=== PATIENT | female | born 1970 | race Caucasian/White ===

== ENCOUNTER 2016-12-26 19:18 | Emergency (ER) | payer SELFPAY ==
[~2016-12-26] VITALS: Ht 170.2 cm; Wt 67.7 kg
[~2016-12-26 19:18] MED LIST: ALBUAER2 INH; BUPR-79 PO; CALC500C3 PO; LEVO112T2 PO; LIOT5TAB PO; MELO15TA4 PO; OMEP20TA PO; POTA1CAP2 PO; PROP80TA2 PO
[2016-12-26 19:21] VITALS: TEMP 36.6; Ht 170.2 cm; Wt 67.7 kg
[2016-12-26] MEDS ORDERED: VNTHFA/IN INH (19:46)
[2016-12-26] MEDS ORDERED: POTA10CA28 PO (19:46)
[2016-12-26] MEDS ORDERED: GI COCKTAIL PO STA (20:38)
--- NOTE | 2016-12-26 20:44 | EMERGENCY ROOM VISIT NOTE ---
History Report prepared by Adis: Seb Suarez Under the Supervision of: Dr. Iron Ivan M.D. First contact with patient: 20:26 Chief Complaint: SORETHROAT Stated Complaint: HEADACHE, SORE THROAT History of Present Illness The patient is a 46 year old female who presents to the Emergency Room with complaints of a constant sorethroat beginning 8 days ago. The patient states that she ate blueberries. She reports that it started with a sorethroat and chest pain. The patient notes that now she is short of breath, nauseous, has neck pain, a headache, abdominal pain, and difficulty swallowing. She states that swallowing worsens her symptoms. The patient reports that she called her PCP to make an appointment and was told to come here. She notes that she has a history of GERD and takes Nexium. The patient states that she has a history of a cholecystectomy and a thyroidectomy. She denies a history of pancreatitis, liver problems, heart disease, recent travel, and steroid use. The patient notes that she is a smoker, and she sometimes smokes up to 3 packs a day. Source of History: patient Onset: 8 days ago Position: throat Quality: other (sore) Timing: constant Modifying Factors (Worsening): other (swallowing) Associated Symptoms: + headache, + neck pain, + chest pain, + SOB, + nausea , + abdominal pain Note: Associated symptoms: difficulty swallowing. Review of Systems See HPI for pertinent positives & negatives. A total of 10 systems reviewed and were otherwise negative. Past Medical & Surgical Medical Problems: (1) Abdominal hysterectomy (2) Cholecystectomy (3) Graves' eye disease (4) Tonsillectomy Family History Hypertension Lung disease Social History Smoking Status: Current Every Day Smoker Alcohol Use: occasionally Marital Status: single Housing Status: lives with family Occupation Status: employed Current/Historical Medications Scheduled Levothyroxine Sodium (Synthroid), 112 MCG PO DAILY Liothyronine Sodium (Cytomel), 5 MCG PO BID Meloxicam (Meloxicam), 15 MG PO DAILY Omeprazole (Omeprazole), 20 MG PO DAILY Potassium Chloride (Micro-K Ext Rel), 10 MEQ PO DAILY Propranolol (Inderal), 80 MG PO DAILY Scheduled PRN Albuterol Hfa (Ventolin Hfa), 2 PUFFS INH Q4H PRN for SOB/Wheezing Allergies Coded Allergies: Gadolinium (Verified Allergy, Intermediate, hives, 12/26/16) Fenofibrate (Verified Allergy, Mild, edema, 12/26/16) Iodinated Diagnostic Agents (Verified Allergy, Unknown, swell, 12/26/16) Physical Exam Vital Signs Date Time Temp Pulse Resp B/P (MAP) Pulse Ox O2 Delivery O2 Flow Rate FiO2 12/26/16 22:14 60 20 122/65 96 12/26/16 21:10 62 18 136/92 97 Room Air 12/26/16 21:03 Room Air 95 12/26/16 19:21 36.6 68 18 95 Room Air Physical Exam GENERAL: Patient is well appearing and in no acute distress. HEENT: No acute trauma, normocephalic atraumatic, mucous membranes moist, no nasal congestion, no scleral icterus. NECK: No stridor, no adenopathy, no meningismus, trachea is midline. LUNGS: No dyspnea. Faint wheezing bilaterally to the lower lobes. no rhonchi. HEART: Regular rate and rhythm. No murmurs, rubs, gallops appreciated. ABDOMEN: Soft, nontender, bowel sounds positive, no masses appreciated, no peritonitis. BACK: No midline tenderness, no CVA tenderness EXTREMITIES: Normal motion all extremities, no cyanosis, no edema. NEUROLOGIC: Alert and oriented, no acute motor or sensory deficits, no focal weakness, cranial nerves grossly intact. SKIN: No rash, no jaundice, no diaphoresis. Medical Decision & Procedures ER Provider Diagnostic Interpretation: Radiology results and stated below per my review and radiologist interpretation: SOFT TISSUE NECK CLINICAL HISTORY: Globus sensation COMPARISON STUDY: No previous studies for comparison. FINDINGS: Surgical clips within the lower neck are noted. Alignment of the cervical spine is anatomic with the exception of straightening. Prevertebral soft tissues are unremarkable by radiography. Epiglottis is normal. No radiopaque foreign body is identified. IMPRESSION: No significant abnormality within the neck by radiography. Electronically signed by: Brett Holbrook M.D. 12/26/2016 9:46 PM Dictated Date/Time: 12/26/2016 9:45 PM CHEST 1 VW FRONT-NOT PORTABLE CLINICAL HISTORY: Chest pain. COMPARISON STUDY: Chest radiograph November 06, 2014. FINDINGS: Note is made of cholecystectomy clips. No pneumothorax or pleural effusion is identified. There is no consolidation to suggest pneumonia. Pulmonary vascularity is normal. Cardiomediastinal silhouette is normal. IMPRESSION: No acute cardiopulmonary findings. Electronically signed by: Brett Holbrook M.D. 12/26/2016 9:45 PM Dictated Date/Time: 12/26/2016 9:44 PM Laboratory Results 12/26/16 20:40 Red Blood Count 4.63, Mean Corpuscular Volume 86.0, Mean Corpuscular Hemoglobin 29.4, Mean Corpuscular Hemoglobin Concent 34.2, Mean Platelet Volume 10.2, Neutrophils (%) (Auto) 55.1, Lymphocytes (%) (Auto) 35.0, Monocytes (%) (Auto) 7.2, Eosinophils (%) (Auto) 1.7, Basophils (%) (Auto) 0.8, Neutrophils # (Auto) 6.02, Lymphocytes # (Auto) 3.81, Monocytes # (Auto) 0.78, Eosinophils # (Auto) 0.18, Basophils # (Auto) 0.09 12/26/16 20:40 Test 12/26/16 20:40 12/26/16 20:42 White Blood Count 10.90 K/uL (4.8-10.8) Red Blood Count 4.63 M/uL (4.2-5.4) Hemoglobin 13.6 g/dL (12.0-16.0) Hematocrit 39.8 % (37-47) Mean Corpuscular Volume 86.0 fL (80-100) Mean Corpuscular Hemoglobin 29.4 pg (25-34) Mean Corpuscular Hemoglobin Concent 34.2 g/dl (32-36) Platelet Count 258 K/uL (130-400) Mean Platelet Volume 10.2 fL (7.4-10.4) Neutrophils (%) (Auto) 55.1 % Lymphocytes (%) (Auto) 35.0 % Monocytes (%) (Auto) 7.2 % Eosinophils (%) (Auto) 1.7 % Basophils (%) (Auto) 0.8 % Neutrophils # (Auto) 6.02 K/uL (1.4-6.5) Lymphocytes # (Auto) 3.81 K/uL (1.2-3.4) Monocytes # (Auto) 0.78 K/uL (0.11-0.59) Eosinophils # (Auto) 0.18 K/uL (0-0.5) Basophils # (Auto) 0.09 K/uL (0-0.2) RDW Standard Deviation 42.6 fL (36.4-46.3) RDW Coefficient of Variation 13.6 % (11.5-14.5) Immature Granulocyte % (Auto) 0.2 % Immature Granulocyte # (Auto) 0.02 K/uL (0.00-0.02) Anion Gap 7.0 mmol/L (3-11) Est Creatinine Clear Calc Drug Dose 79.4 ml/min Estimated GFR () 93.2 Estimated GFR (Non- 80.5 BUN/Creatinine Ratio 13.6 (10-20) Calcium Level 9.1 mg/dl (8.5-10.1) Total Creatine Kinase 127 U/L (26-192) Creatine Kinase MB 2.0 ng/ml (0.5-3.6) Troponin I < 0.015 ng/ml (0-0.045) Creatine Kinase MB Ratio (0-3.0) Laboratory results as reviewed by me. Medications Administered Medications (Trade) Dose Ordered Sig/Anastacio Route Start Time Stop Time Status Last Admin Dose Admin Lidocaine HCl (Viscous Lidocaine 2% Soln) 20 ml STK-MED ONCE .ROUTE 12/26/16 20:53 12/26/16 20:54 DC 12/26/16 20:56 20 ML Al Hydroxide/Mg Hydroxide (Maalox Susp) 30 ml STK-MED ONCE .ROUTE 12/26/16 20:54 12/26/16 20:55 DC 12/26/16 20:56 30 ML ECG Indication: chest pain Rate (beats per minute): 57 Rhythm: sinus bradycardia Findings: RBBB, ST depression (Anterior, Lateral, and Inferior), ST elevation ( mild), other (No STEMI) Comparison ECG Date: 04/04/16 Change: Morphology from today is similar to the EKG in March. Acute change from EKGs prior to that. ED Course 2027: The patient was evaluated in room C08. A complete history and physical exam was performed. 2037: Ordered GI Cocktail 24 ml PO 2052: Ordered Lidocaine HCl 20 ml .ROUTE 2053: Ordered Maalox Susp 30 ml .ROUTE 2141: Reevaluated the patient. She notes that she began drinking large amounts of iced coffee two weeks ago, which she has never consumed before. Discussed results and discharge instructions: she verbalized understanding and agreement. The patient is ready for discharge. Medical Decision Differential: Viral, Tonsillitis, Strep, [place], Peritonsillar Abscess, Retropharyngeal Abscess, Otitis, Pneumonia, Influenza, amongst other pathologies entertained. Medication Reconciliation: I attest that I have personally reviewed the patient 's current medication list. Pleasant 46 yr old female who notes globus like sensation and pain with swallowing over last week. Now with some epigastric discomfort as well though exam benign. Also with vague SHOB which she relates to pain. No pharyngitis on exam and in general exam benign. Admits she recently started drinking coffee and has long hsitory of GERD. Tried GI cocktail with minimal improvement. EKG with diffuse depressions which is similar to previous EKG, though is acutely changed from ones prior to Mar 2016. I suspect that she has had some cardiac event at some point, or this is thyroid related, either way it clearly requires further follow up. Patient is not interested in hospital stay and states she is going home. I heavily stressed need for follow up with PCP and to discuss this further. I made it clear if symptoms worsening or if she begins having other symptoms she should return immediately for further evaluation. I furthermore stressed this upon family member here with her. I advised she start taking Nexium BID for the next week. Impression Primary Impression: EKG abnormalities Additional Impression: Globus sensation Scribe Attestation The scribe's documentation has been prepared under my direction and personally reviewed by me in its entirety. I confirm that the note above accurately reflects all work, treatment, procedures, and medical decision making performed by me. Departure Information Dispostion Home / Self-Care Referrals Primary care Provider Patient Instructions My [facility] Additional Instructions Increase your Nexium to twice daily over the next week. Avoid caffeine, chocolate, spicy foods and alcohol. Return or call 911 if chest pain, difficulty breathing, passing out or other concerning symptoms. You must follow up with your primary care provider in the next few days. Your EKG shows abnormalities (ST depressions throughout the EKG). This is similar to your previous EKG and is likely chronic, but it may mean you have heart disease which needs further evaluation. You labs today reveal no evidence of recent heart attack. Problem Qualifiers
[2016-12-26 20:53] LABS: BASO % 0.8 %; BASO ABS # 0.09 K/uL (0-0.2); COMPLETE YES; EOS % 1.7 %; HEMATOCRIT 39.8 % (37-47); IG% 0.2 %; LYMPH ABS # 3.81 K/uL (1.2-3.4); MEAN CORPUSCULAR HEMOGLOBIN 29.4 pg (25-34); MEAN CORPUSCULAR HGB CONC 34.2 g/dl (32-36); MEAN PLATELET VOLUME 10.2 fL (7.4-10.4); MONO % 7.2 %; NEUT % 55.1 %; PLATELET COUNT 258 K/uL (130-400); RED BLOOD COUNT 4.63 M/uL (4.2-5.4)
[2016-12-26] MEDS ORDERED: LIDOCAINE HCL 2% VISC SOLN 20 ML UDC ONE (20:53)
[2016-12-26] MEDS ORDERED: ALUMINUM/MAGNESIUM SUSP 30 ML UDC ONE (20:54)
[2016-12-26 21:13] LABS: BLOOD UREA NITROGEN 12 mg/dl (7-18); BUN/CREATININE RATIO 13.6 (10-20); CALCIUM 9.1 mg/dl (8.5-10.1); CARBON DIOXIDE 28 mmol/L (21-32); CHLORIDE 106 mmol/L (98-107); CREATININE 0.87 mg/dl (0.60-1.20); GLUCOSE 82 mg/dl (70-99); POTASSIUM 3.3 mmol/L (3.5-5.1); SODIUM 141 mmol/L (136-145)
[2016-12-26 21:17] LABS: CKMB/CK RATIO 1.6 (0-3.0)
--- NOTE | 2016-12-26 21:46 | DIAGNOSTIC IMAGING REPORT ---
CHEST 1 VW FRONT-NOT PORTABLE CLINICAL HISTORY: Chest pain. COMPARISON STUDY: Chest radiograph November 06, 2014. FINDINGS: Note is made of cholecystectomy clips. No pneumothorax or pleural effusion is identified. There is no consolidation to suggest pneumonia. Pulmonary vascularity is normal. Cardiomediastinal silhouette is normal. IMPRESSION: No acute cardiopulmonary findings. Electronically signed by: Brett Holbrook M.D. 12/26/2016 9:45 PM Dictated Date/Time: 12/26/2016 9:44 PM
--- NOTE | 2016-12-26 21:48 | DIAGNOSTIC IMAGING REPORT ---
SOFT TISSUE NECK CLINICAL HISTORY: Globus sensation COMPARISON STUDY: No previous studies for comparison. FINDINGS: Surgical clips within the lower neck are noted. Alignment of the cervical spine is anatomic with the exception of straightening. Prevertebral soft tissues are unremarkable by radiography. Epiglottis is normal. No radiopaque foreign body is identified. IMPRESSION: No significant abnormality within the neck by radiography. Electronically signed by: Brett Holbrook M.D. 12/26/2016 9:46 PM Dictated Date/Time: 12/26/2016 9:45 PM
[2016-12-26 22:14] VITALS: BP 122/65; PULSE 60; O2SAT 96
== END 2016-12-26 22:14 | disposition home or self-care (01) ==
LOC: C.EDB 19:19 → C.EDC 22:14
DX: F45.8 Other somatoform disorders (principal); R94.31 Abnormal electrocardiogram [ECG] [EKG]; K21.9 Gastro-esophageal reflux disease without esophagitis; I45.10 Unspecified right bundle-branch block; F17.200 Nicotine dependence, unspecified, uncomplicated; Z90.49 Acquired absence of other specified parts of digestive tract; Z98.890 Other specified postprocedural states; Z79.899 Other long term (current) drug therapy; Z88.8 Allergy status to other drugs, medicaments and biological substances; Z91.041 Radiographic dye allergy status; Z82.49 Family history of ischemic heart disease and other diseases of the circulatory system

== ENCOUNTER 2020-07-26 16:26 | Observation (INO) ==
--- NOTE | 2020-07-26 17:27 | Emergency Department Note ---
Impression & Plan Chest pain ED Provider Note NAME: RODRIGO BRADY AGE: 50 SEX: F : 1970 ARRIVES VIA: Walk-In INFORMANT: Patient, ED PROVIDER(S): Adiel Post MD Chief Complaint: Chest pain HPI: Patient does present with intermittent chest discomfort which has been ongoing for several weeks. The patient has had some pain in the shoulders and neck area which have been ongoing for several months. The patient did have a temporal artery biopsy completed back in June. The patient is a smoker. Patient denies any exertional symptoms shortness of breath lower extremity swelling. The patient denies any recent travel. The patient's most recent procedure was 5 to 6 weeks ago. Patient denies any prior history of DVT or PE. The patient describes the pain in the upper abdomen and radiates high higher into the chest but does not radiate to the back. Patient denies any alcohol use. The patient is concerned about something that may be wrong with her heart and/or the pancreas. Patient denies any recent trauma to the area. The patient denies any cough fevers chills. ROS: See HPI for pertinent positives and negatives. A total of 10 systems were reviewed and otherwise negative. Past medical history: See below Surgical history: See below Social history: See below Physical Exam: GENERAL: Wearing glasses and a mask. NAD, non-toxic. EYE EXAM: Normal conjunctiva. PERRL, no anisocoria and EOM's grossly intact w/o pain. Head: Well-healing incisional site over the right temporal area without any active bleeding pulsatility, fluctuance drainage or redness. NECK: Supple, no nuchal rigidity, no adenopathy, non-tender. No signs of meningismus. Chest: No reproducible chest wall pain. LUNGS: Clear to auscultation. Normal chest wall mechanics. HEART: NSR, no MRG. ABDOMEN: Abdomen soft, mild epigastric and right upper quadrant discomfort, normo-active bowel sounds, no masses, no rebound or guarding. BACK: No CVA TTP. SKIN: No rashes and no bruising. UPPER EXTREMITIES: Upper extremities are grossly normal. LOWER EXTREMITIES: Grossly normal, no edema. Negative Homans' sign bilaterally. NEURO EXAM: A&O x3, cranial nerves II-XII grossly intact, normal speech, moves all 4 extremities on command w/o issue. Differential diagnoses: Cardiac ischemia, aortic dissection, pulmonary embolism, pneumothorax, pneumonia, pericarditis, myocarditis, esophageal rupture, GERD, cholecystitis, pancreatitis, musculoskeletal, as well as other pathologies. Course: Patient was seen and evaluated the bedside. Full history physical exam was performed. EKG: Indication: Chest pain Normal sinus rhythm, rate 83, normal intervals, normal axis, ST depressions inferiorly and laterally. Repeat EKG Normal sinus rhythm, rate of 65, normal intervals, normal axis, T WI in lead III, ST depressions appear improved compared to prior. Repeat EKG Normal sinus rhythm, rate of 62, normal intervals, normal axis, T wave inversion lead III, no significant change from prior EKG. Imaging Studies: Radiology results as stated below per my review in the radiologist's interpretation: XR chest 1V portable CLINICAL HISTORY: Atypical chest pain COMPARISON STUDY: 05/16/2020 FINDINGS: The heart is mildly enlarged. There is no failure. There is no focal pulmonary consolidation. There are no pleural effusions. There is no pneumothorax.[ IMPRESSION: No active disease in the chest. ACT 112: Negative or not required by law. Electronically signed by: Ramon Smith M.D. 07/26/2020 5:55 PM Dictated: 07/26/201754Transcribed: 07/26/201754 Cardiac monitoring: An order was placed for continuous cardiac monitoring. The monitor shows a rate of 90 with sinus rhythm. MDM: Patient does present with concern for chest pain. The patient states that she is currently being worked up as an outpatient for possible autoimmune disorder but has no definitive diagnosis per the patient. records through the case manage r as they are with [facility]. I did attempt to obtain her outpatient records. Patient's chest pain had improved. Blood work unremarkable. D-dimer not elevated. I did speak with the on-call shirring tender Dr. Stoner and stated that given the possible dynamic EKG changes with a negative troponin he is in agreement with heparin. This was ordered. The patient did have another bout of chest discomfort. Repeat EKG was ordered and does not show any acute changes at this time. I did speak with the on-call hospitalist Dr. Fajardo. The patient was admitted to the [facility] medicine service. Critical Care: I have personally spent 45 minutes of critical care time in direct management of this patient. This includes bedside care, interpretation of diagnostic studies, and testing, discussion with consultants, patient, and family members, and other require inpatient management activities. This 45 minutes is in excess of all separately billable procedures. Past Med/Surg History Medical History (Updated 07/26/20 @ 21:20 by Adiel Post MD) Chiari I malformation Depression GERD (gastroesophageal reflux disease) Graves' eye disease Hyperthyroidism Migraines Papillary carcinoma of thyroid Surgical History H/O thyroidectomy H/O: hysterectomy History of cholecystectomy History of tonsillectomy S/P right knee arthroscopy S/P right oophorectomy Family History Mother Hypertension Social History Smoking Status: Current every day smoker Tobacco Type: Cigarettes Cigarettes Per Day: 1.5 packs; Second Hand Exposure: Yes; Hx Alcohol Use: No Hx Substance Use: No Preferred Language: Bahraini Communication Ability: Effective Visual Impairment: No Limitations Bail Attacher Required: No Beliefs That Will Affect Care: None Current Living Situation: Family Feels Safe at Home: Yes Safety Concerns: Feels Safe At This Time Assistive Devices: Glasses Allergies Allergies Allergy/AdvReac Type Severity Reaction Status Date / Time Gadolinium-Containing Allergy Intermediate hives Verified 07/26/20 18:46 Contrast Medi fenofibrate Allergy Mild edema Verified 07/26/20 18:47 lisinopril AdvReac Headache Unverified 07/26/20 18:56 Home Meds Home Medications Medication Instructions Recorded Confirmed levothyroxine 112 mcg PO DAILY 04/01/18 07/26/20 omeprazole 20 mg PO HS 04/21/18 07/26/20 liothyronine 7.5 mcg PO BID 05/16/20 07/26/20 prednisone 40 mg PO DAILY 07/26/20 07/26/20 Results & Data (ED) Vital Signs Vital Signs - 24 hr 07/26/20 16:32 07/26/20 18:00 07/26/20 18:30 Temperature 36.9 C Temperature Source Temporal Artery Scan Pulse Rate 90 78 Pulse Rate from SpO2 Sensor 77 Respiratory Rate 18 14 Respiratory Effort / Characteristics Non-Labored Spontaneous Respiratory Depth Normal Respiratory Pattern Regular Blood Pressure 176/101 H 162/97 H Blood Pressure Mean 126 118 Blood Pressure Position Sitting Pulse Oximetry 96 99 99 Oxygen Delivery Method Room Air Room Air Sepsis Recent Fever Within 48 Hours No Sepsis New/Unexplained Change in Mental Status N/A Sepsis Action Taken by Nursing No Action Required 07/26/20 18:42 Temperature Temperature Source Pulse Rate 79 Pulse Rate from SpO2 Sensor 79 Respiratory Rate 13 Respiratory Effort / Characteristics Respiratory Depth Respiratory Pattern Blood Pressure Blood Pressure Mean Blood Pressure Position Pulse Oximetry 99 Oxygen Delivery Method Sepsis Recent Fever Within 48 Hours Sepsis New/Unexplained Change in Mental Status Sepsis Action Taken by [facility] Medications Current Medication List: was personally reviewed by me Laboratory Data Attestation: I reviewed the patient's lab results. Result diagrams: 07/26/20 18:26 07/26/20 18:26 Lab Results 07/26/20 07/26/20 07/26/20 Range/Units 18:26 18:26 18:26 WBC 14.44 H (4.8-10.8) K/uL RBC 4.96 (4.2-5.4) M/uL Hgb 14.7 (12.0-16.0) g/dL Hct 44.1 (37-47) % MCV 88.9 (80-100) fL MCH 29.6 (25-34) pg MCHC 33.3 (32-36) g/dL RDW Std Deviation 47.1 H (36.4-46.3) fL RDW Coeff of Jessika 14.5 (11.5-14.5) % Plt Count 307 (130-400) K/uL MPV 9.9 (7.4-10.4) fL Immature Gran % (Auto) 0.6 % Neut % (Auto) 78.6 % Lymph % (Auto) 16.1 % Avery % (Auto) 4.5 % Eos % (Auto) 0.1 % Baso % (Auto) 0.1 % Neut # (Auto) 11.34 H (1.4-6.5) K/uL Lymph # (Auto) 2.33 (1.2-3.4) K/uL Avery # (Auto) 0.65 H (0.11-0.59) K/uL Eos # (Auto) 0.01 (0-0.5) K/uL Baso # (Auto) 0.02 (0-0.2) K/uL Immature Gran # (Auto) 0.09 H (0.00-0.02) K/uL ESR (0-21) mm/hr PT (9.0-12.0) Seconds INR (0.9-1.1) APTT (21.0-31.0) Seconds PTT Ratio D-Dimer 280 (0-500) ug/L FEU Sodium 140 (136-145) mmol/L Potassium 4.3 (3.5-5.1) mmol/L Chloride 106 (98-107) mmol/L Carbon Dioxide 27 (21-32) mmol/L Anion Gap 7.0 (3-11) BUN 14 (7-18) mg/dl Creatinine 0.77 (0.6-1.2) mg/dl Est Cr Clr Drug Dosing 95.3 ml/min Est GFR ( Amer) 105.1 Est GFR (Non-Af Amer) 90.7 BUN/Creatinine Ratio 17.7 (10-20) Glucose 98 (70-99) mg/dl Calcium 9.4 (8.5-10.1) mg/dl Total Bilirubin 0.1 L (0.2-1) mg/dl AST 7 L (15-37) U/L ALT 22 (12-78) U/L Alkaline Phosphatase 91 (45-117) U/L Troponin I < 0.015 (0-0.045) ng/ml Total Protein 7.7 (6.4-8.2) gm/dl Albumin 3.7 (3.4-5.0) gm/dl Globulin 4.0 (2.5-4.0) gm/dl Albumin/Globulin Ratio 0.9 (0.9-2) Lipase 116 (73-393) U/L Procalcitonin (0-0.5) ng/ml TSH < 0.005 L (0.300-4.500) uIu/ml Free T4 1.52 (0.8-1.6) ng/dl Urine Color Urine Appearance (Clear) Urine pH (4.5-7.5) Ur Specific [place] (1.000-1.030) Urine Protein (Negative) Urine Glucose (UA) (Negative) Urine Ketones (Negative) Urine Blood (Negative) Urine Nitrite (Negative) Urine Bilirubin (Negative) Urine Urobilinogen (Negative) Ur Leukocyte Esterase (Negative) Urine WBC (Auto) (0-5) /hpf Urine RBC (Auto) (0-4) /hpf U Hyaline Cast (Auto) (0-5) /lpf U Epithel Cells (Auto) (0-5) /lpf Urine Bacteria (Auto) (Negative) COVID-19 Eval Order SARS-CoV-2, RNA, NAAT (NEGATIVE) 07/26/20 07/26/20 07/26/20 Range/Units 18:26 18:26 18:26 WBC (4.8-10.8) K/uL RBC (4.2-5.4) M/uL Hgb (12.0-16.0) g/dL Hct (37-47) % MCV (80-100) fL MCH (25-34) pg MCHC (32-36) g/dL RDW Std Deviation (36.4-46.3) fL RDW Coeff of Jessika (11.5-14.5) % Plt Count (130-400) K/uL MPV (7.4-10.4) fL Immature Gran % (Auto) % Neut % (Auto) % Lymph % (Auto) % Avery % (Auto) % Eos % (Auto) % Baso % (Auto) % Neut # (Auto) (1.4-6.5) K/uL Lymph # (Auto) (1.2-3.4) K/uL Avery # (Auto) (0.11-0.59) K/uL Eos # (Auto) (0-0.5) K/uL Baso # (Auto) (0-0.2) K/uL Immature Gran # (Auto) (0.00-0.02) K/uL ESR (0-21) mm/hr PT 9.1 (9.0-12.0) Seconds INR 0.9 (0.9-1.1) APTT 21.4 (21.0-31.0) Seconds PTT Ratio 0.8 D-Dimer (0-500) ug/L FEU Sodium (136-145) mmol/L Potassium (3.5-5.1) mmol/L Chloride (98-107) mmol/L Carbon Dioxide (21-32) mmol/L Anion Gap (3-11) BUN (7-18) mg/dl Creatinine (0.6-1.2) mg/dl Est Cr Clr Drug Dosing ml/min Est GFR ( Amer) Est GFR (Non-Af Amer) BUN/Creatinine Ratio (10-20) Glucose (70-99) mg/dl Calcium (8.5-10.1) mg/dl Total Bilirubin (0.2-1) mg/dl AST (15-37) U/L ALT (12-78) U/L Alkaline Phosphatase (45-117) U/L Troponin I (0-0.045) ng/ml Total Protein (6.4-8.2) gm/dl Albumin (3.4-5.0) gm/dl Globulin (2.5-4.0) gm/dl Albumin/Globulin Ratio (0.9-2) Lipase (73-393) U/L Procalcitonin < 0.05 (0-0.5) ng/ml TSH (0.300-4.500) uIu/ml Free T4 (0.8-1.6) ng/dl Urine Color Yellow Urine Appearance Clear (Clear) Urine pH 5.5 (4.5-7.5) Ur Specific [place] 1.010 (1.000-1.030) Urine Protein Negative (Negative) Urine Glucose (UA) Negative (Negative) Urine Ketones Negative (Negative) Urine Blood 1+ H (Negative) Urine Nitrite Negative (Negative) Urine Bilirubin Negative (Negative) Urine Urobilinogen Negative (Negative) Ur Leukocyte Esterase Negative (Negative) Urine WBC (Auto) 0 (0-5) /hpf Urine RBC (Auto) 0-4 (0-4) /hpf U Hyaline Cast (Auto) 0 (0-5) /lpf U Epithel Cells (Auto) 10-20 H (0-5) /lpf Urine Bacteria (Auto) Negative (Negative) COVID-19 Eval Order SARS-CoV-2, RNA, NAAT (NEGATIVE) 07/26/20 07/26/20 07/26/20 Range/Units 18:26 18:52 18:52 WBC (4.8-10.8) K/uL RBC (4.2-5.4) M/uL Hgb (12.0-16.0) g/dL Hct (37-47) % MCV (80-100) fL MCH (25-34) pg MCHC (32-36) g/dL RDW Std Deviation (36.4-46.3) fL RDW Coeff of Jessika (11.5-14.5) % Plt Count (130-400) K/uL MPV (7.4-10.4) fL Immature Gran % (Auto) % Neut % (Auto) % Lymph % (Auto) % Avery % (Auto) % Eos % (Auto) % Baso % (Auto) % Neut # (Auto) (1.4-6.5) K/uL Lymph # (Auto) (1.2-3.4) K/uL Avery # (Auto) (0.11-0.59) K/uL Eos # (Auto) (0-0.5) K/uL Baso # (Auto) (0-0.2) K/uL Immature Gran # (Auto) (0.00-0.02) K/uL ESR 27 H (0-21) mm/hr PT (9.0-12.0) Seconds INR (0.9-1.1) APTT (21.0-31.0) Seconds PTT Ratio D-Dimer (0-500) ug/L FEU Sodium (136-145) mmol/L Potassium (3.5-5.1) mmol/L Chloride (98-107) mmol/L Carbon Dioxide (21-32) mmol/L Anion Gap (3-11) BUN (7-18) mg/dl Creatinine (0.6-1.2) mg/dl Est Cr Clr Drug Dosing ml/min Est GFR ( Amer) Est GFR (Non-Af Amer) BUN/Creatinine Ratio (10-20) Glucose (70-99) mg/dl Calcium (8.5-10.1) mg/dl Total Bilirubin (0.2-1) mg/dl AST (15-37) U/L ALT (12-78) U/L Alkaline Phosphatase (45-117) U/L Troponin I (0-0.045) ng/ml Total Protein (6.4-8.2) gm/dl Albumin (3.4-5.0) gm/dl Globulin (2.5-4.0) gm/dl Albumin/Globulin Ratio (0.9-2) Lipase (73-393) U/L Procalcitonin (0-0.5) ng/ml TSH (0.300-4.500) uIu/ml Free T4 (0.8-1.6) ng/dl Urine Color Urine Appearance (Clear) Urine pH (4.5-7.5) Ur Specific [place] (1.000-1.030) Urine Protein (Negative) Urine Glucose (UA) (Negative) Urine Ketones (Negative) Urine Blood (Negative) Urine Nitrite (Negative) Urine Bilirubin (Negative) Urine Urobilinogen (Negative) Ur Leukocyte Esterase (Negative) Urine WBC (Auto) (0-5) /hpf Urine RBC (Auto) (0-4) /hpf U Hyaline Cast (Auto) (0-5) /lpf U Epithel Cells (Auto) (0-5) /lpf Urine Bacteria (Auto) (Negative) COVID-19 Eval Order Covid19 IDNow atMMDC SARS-CoV-2, RNA, NAAT NEGATIVE (NEGATIVE) Administered Medications Heparin Sodium/Dextrose (Heparin Sodium/Dextrose) 25,000 units in 500 mls @ 16 mls/hr IV .Q24H NESSA; Protocol Stop: 08/25/20 19:44 Last Admin: 07/26/20 21:06 Dose: 800 units/hr, 16 mls/hr Documented by: [id number] Cosigned by: [id number] Liothyronine Sodium (Liothyronine Sodium 5 Mcg Tab) 7.5 mcg PO BID NESSA Stop: 08/25/20 20:59 Last Admin: 07/26/20 21:13 Dose: Not Given Documented by: [id number] Pantoprazole Sodium (Pantoprazole 40 Mg Tab) 40 mg PO HS NESSA; Protocol Stop: 08/25/20 20:59 Last Admin: 07/26/20 21:13 Dose: 40 mg Documented by: [id number] Discontinued Medications Aspirin (Aspirin Chew 324 Mg) 324 mg PO NOW STA Stop: 07/26/20 18:40 Last Admin: 07/26/20 18:49 Dose: 324 mg Documented by: [id number] Heparin Sodium/Dextrose (Heparin Iv Low Dose With Bolus) 1 ea IV NOW STA; Protocol Stop: 07/26/20 19:43 Last Admin: 07/26/20 21:07 Dose: 1 ea Documented by: [id number] Sodium Chloride (Nss) 500 mls @ 999 mls/hr IV .Q31M NESSA Stop: 07/26/20 18:15 Last Infusion: 07/26/20 18:56 Dose: 0 mls/hr Documented by: [id number] Admin: 07/26/20 18:05 Dose: 999 mls/hr Documented by: [id number] Sodium Chloride (Nss) 500 mls @ 999 mls/hr IV .Q31M ONE Stop: 07/26/20 18:14 Last Infusion: 07/26/20 18:56 Dose: 0 mls/hr Documented by: [id number] Admin: 07/26/20 18:05 Dose: 999 mls/hr Documented by: [id number] Heparin Sodium (Porcine) 4,000 (units/ Syringe) 4 mls @ 10 mls/min IV NOW ONE Stop: 07/26/20 21:01 Last Admin: 07/26/20 21:06 Dose: 10 mls/min Documented by: [id number] Cosigned by: [id number] Morphine Sulfate (Morphine Sulfate 4 Mg/Ml 1 Ml Carp\Vial) 4 mg IV NOW STA Stop: 07/26/20 17:45 Last Admin: 07/26/20 18:33 Dose: 4 mg Documented by: [id number] Nitroglycerin (Nitroglycerin Sl 0.4 Mg/Tab Tab) 0.4 mg SL NOW STA Stop: 07/26/20 18:40 Last Admin: 07/26/20 18:49 Dose: 0.4 mg Documented by: [id number] Discharge Plan Visit Data Chief Complaint: Chest Pain Stated Complaint: Muscle aches, chest pain, r arm pain ED Provider: Adiel Post Discharge Problem: Chest pain Patient Disposition: Admitted As Inpatient Discharge Instructions Interventions: ED Discharge Assessment Last Done: 07/26/20 20:11 Discharge Problem: Chest pain Qualifiers: Chest pain type: unspecified Qualified Code(s): R07.9 - Chest pain, unspecified
[2020-07-26] MEDS ORDERED: MoRPHine SULFATE 4 MG/ML 1 ML CARP\\VIAL IV STA (17:44)
[2020-07-26] MEDS ORDERED: SODIUM CHLORIDE 0.9% 500 ML IV ONE (17:44)
[2020-07-26] MEDS ORDERED: SODIUM CHLORIDE 0.9% 500 ML IV SCH (17:45)
--- NOTE | 2020-07-26 17:57 | XRay Report ---
XR chest 1V portable CLINICAL HISTORY: Atypical chest pain COMPARISON STUDY: 05/16/2020 FINDINGS: The heart is mildly enlarged. There is no failure. There is no focal pulmonary consolidatio n. There are no pleural effusions. There is no pneumothorax.[ IMPRESSION: No active disease in the chest. ACT 112: Negative or not required by law. Electronically signed by: Ramon Smith M.D. 07/26/2020 5:55 PM
[2020-07-26 18:37] LABS: Basophils # (auto) 0.02 K/uL (0-0.2); Basophils % (auto) 0.1 %; Eosinophils # (auto) 0.01 K/uL (0-0.5); Eosinophils % (auto) 0.1 %; Hematocrit (blood only) 44.1 % (37-47); Hemoglobin 14.7 g/dL (12.0-16.0); Immature Granulocytes # (auto) 0.09 K/uL (0.00-0.02); Immature Granulocytes % (auto) 0.6 %; Lymphocytes # (auto) 2.33 K/uL (1.2-3.4); Lymphocytes % (auto) 16.1 %; Mean Corpuscular Hemoglobin 29.6 pg (25-34); Mean Corpuscular Hgb Conc 33.3 g/dL (32-36); Mean Corpuscular Volume 88.9 fL (80-100); Mean Platelet Volume 9.9 fL (7.4-10.4); Monocytes # (auto) 0.65 K/uL (0.11-0.59); Monocytes % (auto) 4.5 %; Neutrophils # (auto) 11.34 K/uL (1.4-6.5); Neutrophils % (auto) 78.6 %; Platelet Count 307 K/uL (130-400); RDW Coefficient of Variation 14.5 % (11.5-14.5); RDW Standard Deviation 47.1 fL (36.4-46.3); Red Blood Count 4.96 M/uL (4.2-5.4); White Blood Count 14.44 K/uL (4.8-10.8)
[2020-07-26] MEDS ORDERED: NITROGLYCERIN SL 0.4 MG/TAB TAB SL PRN (18:39)
[2020-07-26] MEDS ORDERED: ASPIRIN CHEW 324 MG PO STA (18:39)
[2020-07-26] MEDS ORDERED: NITROGLYCERIN SL 0.4 MG/TAB TAB SL STA (18:39)
[2020-07-26 18:56] LABS: Alanine Aminotransferase 22 U/L (12-78); Albumin Level 3.7 gm/dl (3.4-5.0); Aspartate Aminotransferase 7 U/L (15-37); BUN Creatinine Ratio 17.7 (10-20); Blood Urea Nitrogen 14 mg/dl (7-18); Calcium 9.4 mg/dl (8.5-10.1); Carbon Dioxide 27 mmol/L (21-32); Chloride 106 mmol/L (98-107); Creatinine Clr Calc Pharmacy 95.3 ml/min; Est GFR (African American) 105.1; Est GFR (Non-African American) 90.7; Glucose 98 mg/dl (70-99); Lipase 116 U/L (73-393); Potassium 4.3 mmol/L (3.5-5.1); Sodium 140 mmol/L (136-145)
[2020-07-26 19:01] LABS: Albumin Globulin Ratio 0.9 (0.9-2); Alkaline Phosphatase 91 U/L (45-117); Bilirubin,Total 0.1 mg/dl (0.2-1); Total Protein 7.7 gm/dl (6.4-8.2); Troponin I < 0.015 ng/ml (0-0.045)
[2020-07-26 19:03] LABS: D Dimer 280 ug/L FEU (0-500)
[2020-07-26] MEDS ORDERED: ACETAMINOPHEN 325 MG TAB PO PRN (19:32)
[2020-07-26] MEDS ORDERED: ALUMINUM/MAGNESIUM SUSP 30 ML UDC PO PRN (19:32)
[2020-07-26] MEDS ORDERED: ONDANSETRON INJ 2 MG/ML 2 ML VIAL IV PRN (19:32)
[2020-07-26] MEDS ORDERED: POLYETHYLENE (MIRALAX) 17 GM PACK PO PRN (19:32)
--- NOTE | 2020-07-26 19:34 | History & Physical Report ---
Date of Service July 26, 2020 Assessment & Plan (1) Chest pain: presented with angina symptoms -on and off for past 1 week T wave flattening noted on lateral leads no chest pain at present : risk factors for CAD : family hx of CAD ( Grand mother , Aunt had CAD ) Uncle hx of stroke , pt is a heavy smoker 1 1/2 pl cig for > 25 yrs ( smoking cessation counselling provided ) IV heparin wt based protocol resting ECHO , cardiology eval D dimer negative -Doubt thromboembolic event with complain of chest pain radiating to back , Aortic dissection could be a consideration but at present vital stable , no chest discomfort will hold off CT chest contrast study now , if suspicion remains high and no cardiac angiogram planned CTA chest will be done in am pt is already on Iv heparin 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 : was seen by Rheumatology at [place] on 07/08/20 hx of rt temporal pain /headache , blurred vision had temporal artery biopsy treated with PO prednisone with no improvement of symptoms ESR ordered borderline elevated Leukocytosis : possible steroid induced was on prednisone 60 mg for possible Giant cell arteritis / Full code Disposition : PCU monitoring for cardiac work up expected to be discharged home when medically stable History of Present Illness Chief Complaint: substernal chest pain /chest heaviness Primary Care Provider: Kimberlee Starkey, DO this a 50 yo female with past medical hx of thyroid carcinoma, GERD , hx of papillary ca of thyroid s/p thyroidectomy , possible PMR presents to ER with complain of epigastric substernal chest pain experiencing since last Sunday . Pt report usually the pain starts from epigastric area then progressing to upper chest , neck , causing jaw pain had pain radiation to bilateral shoulders and arms with numbness of arm and hand . since last two days she has been experiencing pain is radiating to back . pt is note related to any activity or movement she could be sitting on chair or in bed , and experience symptoms no shortness of breath , no orthopnea , no dizzy spell or palpitation /no other associated symptoms of nausea or diaphoresis during the episodes . does not have any relieving factor /symptoms usually resolves after several minutes past 2 days her chest pain /chest heaviness got progressively worse , called her family physician , pt is asked to come to ER for evaluation pt was found to be mildly hypertensive in ER EKG shows T wave flattening on lateral leads pt denies of any active chest pain currently no headache or blurred vision , no fever or chills or cough , ER physician contacted human resources psychologist -due to symptoms of unstable angina and EKG change -started on IV heparin wt based protocol Allergies Allergy/AdvReac Type Severity Reaction Status Date / Time Gadolinium-Containing Allergy Intermediate hives Verified 07/26/20 18:46 Contrast Medi fenofibrate Allergy Mild edema Verified 07/26/20 18:47 lisinopril AdvReac Headache Unverified 07/26/20 18:56 Home Medications Medication Instructions Recorded Confirmed Type levothyroxine 112 mcg PO DAILY 04/01/18 07/26/20 History omeprazole 20 mg PO HS 04/21/18 07/26/20 History liothyronine 7.5 mcg PO BID 05/16/20 07/26/20 History prednisone 40 mg PO DAILY 07/26/20 07/26/20 History Past Med/Surg History Medical History (Updated 07/26/20 @ 21:20 by Adiel Post MD) Chiari I malformation Depression GERD (gastroesophageal reflux disease) Graves' eye disease Hyperthyroidism Migraines Papillary carcinoma of thyroid Surgical History H/O thyroidectomy H/O: hysterectomy History of cholecystectomy History of tonsillectomy S/P right knee arthroscopy S/P right oophorectomy Family History Mother Hypertension Social History Smoking Status: Current every day smoker Tobacco Type: Cigarettes Cigarettes Per Day: 1.5 packs; Second Hand Exposure: Yes; Hx Alcohol Use: No Hx Substance Use: No Preferred Language: Persian Communication Ability: Effective Visual Impairment: No Limitations Cigarette Tipper Required: No Beliefs That Will Affect Care: None Current Living Situation: Family Feels Safe at Home: Yes Safety Concerns: Feels Safe At This Time Assistive Devices: Glasses Review of Systems Review of Systems: All systems reviewed & are unremarkable except as noted in Subjective Physical Exam Constitutional: WD/WN, vitals as above Eyes: PERRL, conjunctivae normal, anicteric sclerae ENMT: external ear and nose normal, oropharynx normal Neck: trachea midline, no thyromegaly Respiratory: normal respiratory effort, lungs clear to auscultation Cardiovascular: RRR, no murmur, no edema Gastrointestinal (Abdomen): normal bowel sounds, soft, nontender, no hepatosplenomegaly Musculoskeletal: no cyanosis or clubbing, extremities motor strength 5/5 Skin: no rashes, warm and dry Neurologic: PERRL, EOMI, accommodation nl, no face palsy, no dysarthria Psychiatric: A+Ox3, euthymic affect Results & Data Results & Data ([facility]) Vital Signs (Past 12 Hours) Vital Signs Temp Pulse Resp BP Pulse Ox 07/26/20 18:42 79 13 99 07/26/20 18:30 78 14 162/97 H 99 07/26/20 18:00 99 07/26/20 16:32 36.9 C 90 18 176/101 H 96 Code Status & VTE Plan VTE Prophylaxis Plan VTE Prophylaxis will be ordered: Yes (1) Chest pain Chest pain type: unspecified Qualified Code(s): R07.9 - Chest pain, unspecified
[2020-07-26] MEDS ORDERED: Heparin IV Low Dose WITH Bolus IV STA (19:42)
[2020-07-26] MEDS ORDERED: HEPARIN SODIUM/DEXTROSE 25,000 UNITS/500 ML BAG IV SCH (19:45)
[2020-07-26 20:09] LABS: Thyroid Stimulating Hormone < 0.005 uIu/ml (0.300-4.500)
[2020-07-26 20:21] LABS: T4 Free Thyroxine 1.52 ng/dl (0.8-1.6)
[2020-07-26 20:35] LABS: INR 0.9 (0.9-1.1); Partial Thromboplastin Ratio 0.8; Partial Thromboplastin Time 21.4 Seconds (21.0-31.0); Prothrombin Time 9.1 Seconds (9.0-12.0)
[2020-07-26 20:40] LABS: Appearance Urine Clear (Clear); Bacteria Urine Automated Negative (Negative); Bilirubin Urine Negative (Negative); Blood Urine 1+ (Negative); Cast Urine Automated 0 /lpf (0-5); Color Urine Yellow; Glucose Urine UA Negative (Negative); Ketones Urine Negative (Negative); Leukocyte Esterase Urine Negative (Negative); Nitrite Urine Negative (Negative); Protein Urine Negative (Negative); RBC Urine Automated 0-4 /hpf (0-4); Urobilinogen Urine Negative (Negative); WBC Urine Automated 0 /hpf (0-5); pH Urine 5.5 (4.5-7.5)
[2020-07-26] MEDS ORDERED: PANTOprazole 40 MG TAB PO SCH (21:00)
[2020-07-26] MEDS ORDERED: LIOTHYRONINE SODIUM 5 MCG TAB PO SCH (21:00)
[2020-07-26] MEDS ORDERED: HEPARIN IV BOLUS 4,000 UNITS in SYRINGE 0 ML IV ONE (21:00)
[2020-07-27 02:36] LABS: Hematocrit (blood only) 38.8 % (37-47); Hemoglobin 13.2 g/dL (12.0-16.0); Mean Corpuscular Hemoglobin 29.9 pg (25-34); Mean Platelet Volume 9.8 fL (7.4-10.4); Platelet Count 285 K/uL (130-400); RDW Coefficient of Variation 14.6 % (11.5-14.5); RDW Standard Deviation 47.2 fL (36.4-46.3); Red Blood Count 4.41 M/uL (4.2-5.4)
[2020-07-27 02:47] LABS: Partial Thromboplastin Ratio 1.3; Partial Thromboplastin Time 34.8 Seconds (21.0-31.0)
[2020-07-27 02:54] LABS: BUN Creatinine Ratio 21.3 (10-20); Blood Urea Nitrogen 14 mg/dl (7-18); Calcium 8.5 mg/dl (8.5-10.1); Carbon Dioxide 29 mmol/L (21-32); Chloride 107 mmol/L (98-107); Creatinine Clr Calc Pharmacy 110.4 ml/min; Est GFR (African American) 119.6; Est GFR (Non-African American) 103.2; Glucose 89 mg/dl (70-99); Potassium 3.9 mmol/L (3.5-5.1); Sodium 142 mmol/L (136-145)
[2020-07-27 02:59] LABS: Chol HDL Ratio 3; Cholesterol 236 mg/dl (0-200); HDL Cholesterol 71 mg/dl; LDL Cholesterol Calculated 108 mg/dl; Triglycerides 285 mg/dl (0-150); Troponin I < 0.015 ng/ml (0-0.045); VLDL Cholesterol 57 mg/dl
[2020-07-27 03:12] LABS: Basophils # (auto) 0.05 K/uL (0-0.2); Basophils % (auto) 0.4 %; Eosinophils % (auto) 0.7 %; Immature Granulocytes # (auto) 0.06 K/uL (0.00-0.02); Immature Granulocytes % (auto) 0.4 %; Lymphocytes # (auto) 4.88 K/uL (1.2-3.4); Lymphocytes % (auto) 35.1 %; Monocytes # (auto) 1.04 K/uL (0.11-0.59); Monocytes % (auto) 7.5 %; Neutrophils # (auto) 7.77 K/uL (1.4-6.5); Neutrophils % (auto) 55.9 %; RBC Morphology Unremarkable
[2020-07-27] MEDS ORDERED: Nursing to Pharmacy Communication SCH (03:15)
[2020-07-27] MEDS ORDERED: HEPARIN IV BOLUS 3,000 UNITS in SYRINGE 0 ML IV ONE (03:15)
[2020-07-27] MEDS ORDERED: LEVOTHYROXINE SODIUM 112 MCG TABLET PO SCH (06:30)
--- NOTE | 2020-07-27 08:38 | Electrocardiogram Report ---
Test Reason : Blood Pressure : / mmHG Vent. Rate : 083 BPM Atrial Rate : 083 BPM P-R Int : 128 ms QRS Dur : 084 ms QT Int : 386 ms P-R-T Axes : 054 027 -12 degrees QTc Int : 453 ms Normal sinus rhythm Left atrial enlargement Diffuse Nonspecific ST abnormality Abnormal ECG When compared with ECG of 16-MAY-2020 10:17, No significant change Confirmed by Rahul Baker ([id number]) on 07/27/2020 8:38:21 AM Referred By: REFERRED SELF Confirmed By:Rahul Baker
[2020-07-27] MEDS: LIOTHYRONINE SODIUM 5 MCG TAB PO SCH ×2 (08:45→15:53)
[2020-07-27] MEDS ORDERED: predniSONE 20 MG TAB PO SCH (09:00)
[2020-07-27] MEDS ORDERED: ASPIRIN 81 MG ECTAB PO SCH (09:00)
--- NOTE | 2020-07-27 09:03 | Electrocardiogram Report ---
Test Reason : Blood Pressure : / mmHG Vent. Rate : 065 BPM Atrial Rate : 065 BPM P-R Int : 134 ms QRS Dur : 082 ms QT Int : 414 ms P-R-T Axes : 053 035 023 degrees QTc Int : 430 ms Normal sinus rhythm with sinus arrhythmia Diffuse Nonspecific ST abnormality Abnormal ECG When compared with ECG of 26-JUL-2020 16:39, No significant change was found Confirmed by Rahul Baker ([id number]) on 07/27/2020 9:03:24 AM Referred By: REFERRED SELF Confirmed By:Rahul Baker
[2020-07-27 09:09] LABS: Partial Thromboplastin Ratio 1.7; Partial Thromboplastin Time 44.1 Seconds (21.0-31.0)
--- NOTE | 2020-07-27 09:39 | Electrocardiogram Report ---
Test Reason : Blood Pressure : / mmHG Vent. Rate : 062 BPM Atrial Rate : 062 BPM P-R Int : 138 ms QRS Dur : 078 ms QT Int : 422 ms P-R-T Axes : 046 016 009 degrees QTc Int : 428 ms Normal sinus rhythm with sinus arrhythmia Diffuse Nonspecific ST abnormality Abnormal ECG When compared with ECG of 26-JUL-2020 18:18, No significant change was found Confirmed by Rahul Baker ([id number]) on 07/27/2020 9:39:16 AM Referred By: REFERRED SELF Confirmed By:Rahul Baker
--- NOTE | 2020-07-27 10:09 | Cardiology Consultation ---
Date of Consultation July 27, 2020 Assessment & Plan (1) Chest pain: (2) Smoker: (3) GERD (gastroesophageal reflux disease): (4) Hyperthyroidism: (5) Abnormal EKG: (6) RVF (right ventricular failure): Given the patient's presenting symptoms I am concerned that she is suffering from unstable angina. She also has dynamic inferior EKG changes along with a newly discovered reduction of the RV systolic function. She is not had any shortness of breath and her D-dimer is negative so PE would be less likely. Given these findings I believe most prudent course of action is to proceed to cardiac catheterization for direct visualization of the coronary anatomy. This was discussed with the patient along with the pros and cons alternatives and risks and she is in agreement with proceeding. Unfortunately, she has not made n.p.o. after midnight so we will have to wait a few hours for the procedure. Should the catheterization come back unremarkable then further work-up including rule out a PE would be recommended History of Present Illness Reason for Consultation: chest pain Requesting Physician: Dr. Post Attending Physician: Jackie Duran MD History of Present Illness Ms. Galindo is a 50-year-old woman who presented to [facility] on 07/26/2020 at the recommendation of her primary care physician after she presented with complaints of chest discomfort. She states that she has been having chest pain for approximately 1 week now. She states that the first time it happened she was folding laundry and she suddenly developed a severe pressure sensation in her mid epigastric area which then radiated up through her chest and then into her neck and left jaw. She states the pain was very intense at that time and rated as 10 out of 10. States it was associated with diaphoresis and nausea but denies any associated shortness of breath. At that time she sat down and rested and the pain eventually subsided. She states that she has been having waxing and waning chest pain ever since then. But she denies any shortness of breath during this time. She finally called her PCPs office who recommended evaluation emergency department. Upon presentation her chest pain subsided but she did have some dynamic ST segment changes specifically in the inferior and lateral leads. I discussed the case with Dr. Post and she was started on heparin. She states that she does not have any further discomfort since presentation. She denies any previous similar episodes. Allergies Allergy/AdvReac Type Severity Reaction Status Date / Time Gadolinium-Containing Allergy Intermediate hives Verified 07/26/20 18:46 Contrast Medi fenofibrate Allergy Mild edema Verified 07/26/20 18:47 lisinopril AdvReac Headache Unverified 07/26/20 18:56 Home Medications Medication Instructions Recorded Confirmed Type levothyroxine 112 mcg PO DAILY 04/01/18 07/26/20 History omeprazole 20 mg PO HS 04/21/18 07/26/20 History liothyronine 7.5 mcg PO BID 05/16/20 07/26/20 History prednisone 40 mg PO DAILY 07/26/20 07/26/20 History Patient History Medical History (Updated 07/27/20 @ 10:13 by Samir Stoner DO) Chiari I malformation Depression GERD (gastroesophageal reflux disease) Graves' eye disease Hyperthyroidism Migraines Papillary carcinoma of thyroid Surgical History H/O thyroidectomy H/O: hysterectomy History of cholecystectomy History of tonsillectomy S/P right knee arthroscopy S/P right oophorectomy Family History Mother Hypertension Social History Smoking Status: Current every day smoker Tobacco Type: Cigarettes Cigarettes Per Day: 1.5 packs; Second Hand Exposure: Yes; Hx Alcohol Use: No Hx Substance Use: No Preferred Language: Yi Communication Ability: Effective Visual Impairment: No Limitations Judicial Registrar Required: No Beliefs That Will Affect Care: None Current Living Situation: Family Feels Safe at Home: Yes Safety Concerns: Feels Safe At This Time Assistive Devices: Glasses Review of Systems Review of Systems: All systems reviewed & are unremarkable except as noted in HPI & below Physical Exam Physical Exam: General: Awake, alert and oriented x 3. No acute distress. HEENT: Normocephalic, atraumatic. Pupils equal, round and reactive to light and accommodation. Extraocular muscles are intact. Anicteric sclera. Moist mucous membranes. Neck: No JVD. No bruit. Cardiovascular: Regular. Positive S-4. Normal S-1 and S-2. No S-3. No murmurs or rubs. Pulmonary: Clear to auscultation B/L. No rales, rhonchi or wheezing Abdomen: Bowel sounds x 4, soft. No rebound, guarding or tenderness. No organomegaly. Extremities: No clubbing, cyanosis or edema. +2 pedal pulses bilaterally. Skin: Warm and dry. Results & Data ([facility]) Vital Signs (Past 12 Hours) Vital Signs Temp Pulse Resp BP Pulse Ox 07/27/20 07:59 36.7 C 61 17 155/89 H 98 07/27/20 04:06 36.5 C 69 18 144/86 H 97 07/26/20 23:15 36.8 C 78 18 123/73 96 Laboratory Results Laboratory Results - last 24 hr 07/26/20 07/26/20 07/26/20 18:26 18:26 18:26 WBC 14.44 H RBC 4.96 Hgb 14.7 Hct 44.1 MCV 88.9 MCH 29.6 MCHC 33.3 RDW Std Deviation 47.1 H RDW Coeff of Jessika 14.5 Plt Count 307 MPV 9.9 Immature Gran % (Auto) 0.6 Neut % (Auto) 78.6 Lymph % (Auto) 16.1 [place] % (Auto) 4.5 Eos % (Auto) 0.1 Baso % (Auto) 0.1 Neut # (Auto) 11.34 H Lymph # (Auto) 2.33 [place] # (Auto) 0.65 H Eos # (Auto) 0.01 Baso # (Auto) 0.02 Immature Gran # (Auto) 0.09 H RBC Morphology ESR PT INR APTT PTT Ratio D-Dimer 280 Sodium 140 Potassium 4.3 Chloride 106 Carbon Dioxide 27 Anion Gap 7.0 BUN 14 Creatinine 0.77 Est Cr Clr Drug Dosing 95.3 Est GFR ( Amer) 105.1 Est GFR (Non-Af Amer) 90.7 BUN/Creatinine Ratio 17.7 Glucose 98 Calcium 9.4 Total Bilirubin 0.1 L AST 7 L ALT 22 Alkaline Phosphatase 91 Troponin I < 0.015 Total Protein 7.7 Albumin 3.7 Globulin 4.0 Albumin/Globulin Ratio 0.9 Triglycerides Cholesterol LDL Cholesterol, Calc VLDL Cholesterol, Calc HDL Cholesterol Cholesterol/HDL Ratio Lipase 116 Procalcitonin TSH < 0.005 L Free T4 1.52 Urine Color Urine Appearance Urine pH Ur Specific [place] Urine Protein Urine Glucose (UA) Urine Ketones Urine Blood Urine Nitrite Urine Bilirubin Urine Urobilinogen Ur Leukocyte Esterase Urine WBC (Auto) Urine RBC (Auto) U Hyaline Cast (Auto) U Epithel Cells (Auto) Urine Bacteria (Auto) COVID-19 Eval Order SARS-CoV-2, RNA, NAAT 07/26/20 07/26/20 07/26/20 18:26 18:26 18:26 WBC RBC Hgb Hct MCV MCH MCHC RDW Std Deviation RDW Coeff of [place] Plt Count MPV Immature Gran % (Auto) Neut % (Auto) Lymph % (Auto) [place] % (Auto) Eos % (Auto) Baso % (Auto) Neut # (Auto) Lymph # (Auto) [place] # (Auto) Eos # (Auto) Baso # (Auto) Immature Gran # (Auto) RBC Morphology ESR PT 9.1 INR 0.9 APTT 21.4 PTT Ratio 0.8 D-Dimer Sodium Potassium Chloride Carbon Dioxide Anion Gap BUN Creatinine Est Cr Clr Drug Dosing Est GFR ( Amer) Est GFR (Non-Af Amer) BUN/Creatinine Ratio Glucose Calcium Total Bilirubin AST ALT Alkaline Phosphatase Troponin I Total Protein Albumin Globulin Albumin/Globulin Ratio Triglycerides Cholesterol LDL Cholesterol, Calc VLDL Cholesterol, Calc HDL Cholesterol Cholesterol/HDL Ratio Lipase Procalcitonin < 0.05 TSH Free T4 Urine Color Yellow Urine Appearance Clear Urine pH 5.5 Ur Specific [place] 1.010 Urine Protein Negative Urine Glucose (UA) Negative Urine Ketones Negative Urine Blood 1+ H Urine Nitrite Negative Urine Bilirubin Negative Urine Urobilinogen Negative Ur Leukocyte Esterase Negative Urine WBC (Auto) 0 Urine RBC (Auto) 0-4 U Hyaline Cast (Auto) 0 U Epithel Cells (Auto) 10-20 H Urine Bacteria (Auto) Negative COVID-19 Eval Order SARS-CoV-2, RNA, NAAT 07/26/20 07/26/20 07/26/20 18:26 18:52 18:52 WBC RBC Hgb Hct MCV MCH MCHC RDW Std Deviation RDW Coeff of [place] Plt Count MPV Immature Gran % (Auto) Neut % (Auto) Lymph % (Auto) [place] % (Auto) Eos % (Auto) Baso % (Auto) Neut # (Auto) Lymph # (Auto) [place] # (Auto) Eos # (Auto) Baso # (Auto) Immature Gran # (Auto) RBC Morphology ESR 27 H PT INR APTT PTT Ratio D-Dimer Sodium Potassium Chloride Carbon Dioxide Anion Gap BUN Creatinine Est Cr Clr Drug Dosing Est GFR ( Amer) Est GFR (Non-Af Amer) BUN/Creatinine Ratio Glucose Calcium Total Bilirubin AST ALT Alkaline Phosphatase Troponin I Total Protein Albumin Globulin Albumin/Globulin Ratio Triglycerides Cholesterol LDL Cholesterol, Calc VLDL Cholesterol, Calc HDL Cholesterol Cholesterol/HDL Ratio Lipase Procalcitonin TSH Free T4 Urine Color Urine Appearance Urine pH Ur Specific [place] Urine Protein Urine Glucose (UA) Urine Ketones Urine Blood Urine Nitrite Urine Bilirubin Urine Urobilinogen Ur Leukocyte Esterase Urine WBC (Auto) Urine RBC (Auto) U Hyaline Cast (Auto) U Epithel Cells (Auto) Urine Bacteria (Auto) COVID-19 Eval Order Covid19 [facility]Now [facility] SARS-CoV-2, RNA, NAAT NEGATIVE 07/27/20 07/27/20 07/27/20 02:23 02:23 02:23 WBC 13.90 H RBC 4.41 Hgb 13.2 Hct 38.8 MCV 88.0 MCH 29.9 MCHC 34.0 RDW Std Deviation 47.2 H RDW Coeff of [place] 14.6 H Plt Count 285 MPV 9.8 Immature Gran % (Auto) 0.4 Neut % (Auto) 55.9 Lymph % (Auto) 35.1 [place] % (Auto) 7.5 Eos % (Auto) 0.7 Baso % (Auto) 0.4 Neut # (Auto) 7.77 H Lymph # (Auto) 4.88 H [place] # (Auto) 1.04 H Eos # (Auto) 0.10 Baso # (Auto) 0.05 Immature Gran # (Auto) 0.06 H RBC Morphology Unremarkable ESR PT INR APTT 34.8 H PTT Ratio 1.3 D-Dimer Sodium 142 Potassium 3.9 Chloride 107 Carbon Dioxide 29 Anion Gap 6.0 BUN 14 Creatinine 0.67 Est Cr Clr Drug Dosing 110.4 Est GFR ( Amer) 119.6 Est GFR (Non-Af Amer) 103.2 BUN/Creatinine Ratio 21.3 H Glucose 89 Calcium 8.5 Total Bilirubin AST ALT Alkaline Phosphatase Troponin I < 0.015 Total Protein Albumin Globulin Albumin/Globulin Ratio Triglycerides 285 H Cholesterol 236 H LDL Cholesterol, Calc 108 VLDL Cholesterol, Calc 57 HDL Cholesterol 71 Cholesterol/HDL Ratio 3 Lipase Procalcitonin TSH Free T4 Urine Color Urine Appearance Urine pH Ur Specific [place] Urine Protein Urine Glucose (UA) Urine Ketones Urine Blood Urine Nitrite Urine Bilirubin Urine Urobilinogen Ur Leukocyte Esterase Urine WBC (Auto) Urine RBC (Auto) U Hyaline Cast (Auto) U Epithel Cells (Auto) Urine Bacteria (Auto) COVID-19 Eval Order SARS-CoV-2, RNA, NAAT 07/27/20 07/27/20 07:07 08:41 WBC RBC Hgb Hct MCV MCH MCHC RDW Std Deviation RDW Coeff of [place] Plt Count MPV Immature Gran % (Auto) Neut % (Auto) Lymph % (Auto) [place] % (Auto) Eos % (Auto) Baso % (Auto) Neut # (Auto) Lymph # (Auto) [place] # (Auto) Eos # (Auto) Baso # (Auto) Immature Gran # (Auto) RBC Morphology ESR PT INR APTT 44.1 H PTT Ratio 1.7 D-Dimer Sodium Potassium Chloride Carbon Dioxide Anion Gap BUN Creatinine Est Cr Clr Drug Dosing Est GFR ( Amer) Est GFR (Non-Af Amer) BUN/Creatinine Ratio Glucose Calcium Total Bilirubin AST ALT Alkaline Phosphatase Troponin I < 0.015 Total Protein Albumin Globulin Albumin/Globulin Ratio Triglycerides Cholesterol LDL Cholesterol, Calc VLDL Cholesterol, Calc HDL Cholesterol Cholesterol/HDL Ratio Lipase Procalcitonin TSH Free T4 Urine Color Urine Appearance Urine pH Ur Specific [place] Urine Protein Urine Glucose (UA) Urine Ketones Urine Blood Urine Nitrite Urine Bilirubin Urine Urobilinogen Ur Leukocyte Esterase Urine WBC (Auto) Urine RBC (Auto) U Hyaline Cast (Auto) U Epithel Cells (Auto) Urine Bacteria (Auto) COVID-19 Eval Order SARS-CoV-2, RNA, NAAT Medications Administered Current Inpatient Medications Acetaminophen (Acetaminophen 325 Mg Tab) 650 mg PO Q4H PRN PRN Reason: Pain or Fever Stop: 08/25/20 19:31 Last Admin: 07/27/20 03:24 Dose: 650 mg Documented by: Al Hydrox/Mg Hydrox/Simethicone (Aluminum/Magnesium Susp 30 Ml Udc) 15 ml PO Q4H PRN PRN Reason: Dyspepsia Stop: 08/25/20 19:31 Aspirin (Aspirin 81 Mg Ectab) 81 mg PO DAILY NESSA Stop: 08/26/20 08:59 Last Admin: 07/27/20 08:45 Dose: 81 mg Documented by: Heparin Sodium/Dextrose (Heparin Sodium/Dextrose) 25,000 units in 500 mls @ 19 mls/hr IV .Q24H [facility]; Protocol Stop: 08/25/20 19:44 Last Titration: 07/27/20 09:45 Dose: 0 units/hr, 0 mls/hr Documented by: Levothyroxine Sodium (Levothyroxine Sodium 112 Mcg Tablet) [facility] Stop: 08/26/20 06:29 Last Admin: 07/27/20 08:46 Dose: 112 mcg Documented by: Liothyronine Sodium (Liothyronine Sodium 5 Mcg Tab) 7.5 mcg PO BID@0800,1600 [facility] Stop: 08/26/20 07:59 Last Admin: 07/27/20 08:45 Dose: 7.5 mcg Documented by: Nitroglycerin (Nitroglycerin Sl 0.4 Mg/Tab Tab) 0.4 mg SL PRN PRN PRN Reason: Chest Pain Stop: 08/25/20 18:38 Ondansetron HCl (Ondansetron Inj 2 Mg/Ml 2 Ml Vial) 4 mg IV Q6H PRN PRN Reason: Nausea Stop: 08/25/20 19:31 Pantoprazole Sodium (Pantoprazole 40 Mg Tab) 40 mg PO [facility]; Protocol Stop: 08/25/20 20:59 Last Admin: 07/26/20 21:13 Dose: 40 mg Documented by: Polyethylene Glycol (Polyethylene (Miralax) 17 Gm Pack) 17 gm PO DAILY PRN PRN Reason: Constipation Stop: 08/25/20 19:31 Prednisone (Prednisone 20 Mg Tab) [address] [facility] Stop: 08/16/20 08:59 Last Admin: 07/27/20 06:42 Dose: 40 mg Documented by: (1) Chest pain Chest pain type: unspecified Qualified Code(s): R07.9 - Chest pain, unspecified
--- NOTE | 2020-07-27 10:29 | Electrocardiogram Report ---
Test Reason : Blood Pressure : / mmHG Vent. Rate : 060 BPM Atrial Rate : 060 BPM P-R Int : 142 ms QRS Dur : 082 ms QT Int : 416 ms P-R-T Axes : 059 058 013 degrees QTc Int : 416 ms Normal sinus rhythm Diffuse Minor Nonspecific ST abnormality When compared with ECG of 26-JUL-2020 19:57, No significant change was found Confirmed by Rahul Baker ([id number]) on 07/27/2020 10:28:50 AM Referred By: REFERRED SELF Confirmed By:Rahul Baker
[2020-07-27] MEDS ORDERED: SODIUM CHLORIDE 0.9% 1000ML 1,000 ML IV SCH (11:15)
--- NOTE | 2020-07-27 13:09 | Pre Anesthesia Assessment ---
Date of Service July 27, 2020 Pre Sedation Assessment Vital Signs Temp Pulse Pulse Resp BP BP Pulse Ox 07/27/20 14:45 76 18 141/97 H 96 07/27/20 13:38 75 18 146/82 H 97 07/27/20 11:56 36.8 C 64 18 124/69 96 07/27/20 07:59 36.7 C 61 17 155/89 H 98 07/27/20 04:06 36.5 C 69 18 144/86 H 97 07/26/20 23:15 36.8 C 78 18 123/73 96 07/26/20 20:30 73 07/26/20 20:20 36.6 C 74 18 164/97 H 97 07/26/20 20:11 79 13 99 07/26/20 18:42 79 13 99 07/26/20 18:30 78 14 162/97 H 99 07/26/20 18:00 99 07/26/20 16:32 36.9 C 90 18 176/101 H 96 Cardiovascular RRR, no murmur, no edema Respiratory normal respiratory effort, lungs clear to auscultation Pre-Sedation Airway Assessment Smoking Status: Current every day smoker Hx Sleep Apnea: No Hx Difficult Intubation: No Short, Thick Neck: No Mallampati Class: III Procedure Planning Contraindications for Sedation: none Current Medications Reviewed: Yes Notes The planned sedation has been discussed with the patient. Informed Consent was obtained. I have identified the patient, determined the appropriateness of sedation and have assessed the patient immediately prior to the procedure. All medicine(s) and interventions are by my order.
[2020-07-27] MEDS ORDERED: niCARdipine HCL INJ 2.5 MG/ML 10 ML AMP ONE (13:48)
[2020-07-27] MEDS ORDERED: fentaNYL citrate 100 MCG/2 ML VIAL ONE (13:48)
[2020-07-27] MEDS ORDERED: HEPARIN (PORCINE) 1000 UNIT/ML 10 ML (CATH LAB USE ONLY) ONE (13:48)
[2020-07-27] MEDS ORDERED: MIDAZOLAM HCL 1 MG/ML 2ML VIAL ONE ×2 (13:49→14:22)
[2020-07-27] MEDS ORDERED: NITROGLYCERIN/D5W 100MCG/ML 20ML SYR ONE (13:49)
--- NOTE | 2020-07-27 14:51 | Cardiac Catheterization ---
Cardiac Cath Procedure Brief Procedure Date July 27, 2020 Pre-Procedure Diagnosis Pre-Procedure Diagnosis: Cardiothoracic Symptom AUC Score AUC Score: 7 Post-Procedure Diagnosis Post-Procedure Diagnosis: Mild CAD (Minimal irregularities with thin apical segment left anterior descending) Procedure(s) Performed Procedure(s) Performed: Coronary Angiography, Left Heart Cath and LV Angiography Green Prize Packer Fidel Osullivan MD Underwriting Internship(s) [facility] Estimated Blood Loss Estimated Blood Loss: <15cc Medication(s) Medication(s): Fentanyl (12.5 mcg IV x2), Heparin (3000 units IV), Lidocaine 1% (Local infiltration access site), Nicardipine (250 mcg intra-arterial after arterial sheath insertion) and Versed (1 mg IV x 2) Preliminary Findings Impressions: Right dominant coronary anatomy with minimal luminal irregularities only. No obstructive disease. Normal to hyperdynamic left ventricular function, EF 65-70% Recommendations Recommendations: Medical Therapy and/or Counseling Specimens Specimens: None Fluids (cc crystalloids) Fluids (cc crystalloids): 87 Anesthesia Start time: 1411, stop time: 1438 Procedural Complication(s) None Disposition Community [facility] Nurse Staff Holding/Recovery
--- NOTE | 2020-07-27 14:54 | Post Anesthesia Assessment ---
Date of Service July 27, 2020 Post Sedation Assessment Vital Signs Temp Pulse Pulse Resp BP BP Pulse Ox 07/27/20 14:45 76 18 141/97 H 96 07/27/20 13:38 75 18 146/82 H 97 07/27/20 11:56 36.8 C 64 18 124/69 96 07/27/20 07:59 36.7 C 61 17 155/89 H 98 07/27/20 04:06 36.5 C 69 18 144/86 H 97 07/26/20 23:15 36.8 C 78 18 123/73 96 07/26/20 20:30 73 07/26/20 20:20 36.6 C 74 18 164/97 H 97 07/26/20 20:11 79 13 99 07/26/20 18:42 79 13 99 07/26/20 18:30 78 14 162/97 H 99 07/26/20 18:00 99 07/26/20 16:32 36.9 C 90 18 176/101 H 96 Recovery Score Activity: Moves 4 extremities Respiration: Deep Breath/Cough Circulation: +/-20% PreAnes Value Consciousness: Fully Awake Oxygen Saturation: > 92% On Room Air Post Anesthesia Score: 10 Discharge Sedation Level of Care: Phase I Post Sedation Plan On clinical assessment, the patient appears to have tolerated the sedation without complications. Patient is recovering as anticipated. Patient will continue to be monitored by nursing and may be discharged when sedation discharge criteria are met per below protocol. Upon Completions of procedure up to 15 minutes continue every 5 minute vital signs and the P.A.R. score; then discharge to a Phase I or Fast Track to Phase II per the following guidelines: * Discharge Patient to appropriate Phase II area if PAR is 8 or greater or return to pre- procedure baseline. The post - procedure orders will be as directed. * If PAR score is less than 8 or not return to pre-procedure baseline then patient will follow Phase I monitoring till PAR is reached for Phase II. The Phase I may be done in procedure room or may call to secure a Phase I area. * If naloxone or flumazenil are used for reversal, hold in Phase I for continued monitoring from when last reversal dose was given for a minimum of 60 minutes or longer pending the nurse and/or physician discretion of patient condition before discharge to Phase II. Please call the Sedation Physician to re-evaluate and complete post-note for discharge to Phase II area. Do NOT discharge from procedure sedation or Phase 1 until post- sedation evaluation note is complete by procedure /sedation MD Sedation Discharge Instructions to be given to the patient at discharge to home.
--- NOTE | 2020-07-27 15:06 | Cardiac Catheterization ---
Cardiac Cath Procedure Full Procedure Date July 27, 2020 Pre-Procedure Diagnosis Pre-Procedure Diagnosis: Cardiothoracic Symptom AUC Score AUC Score: 7 Post-Procedure Diagnosis Post-Procedure Diagnosis: Mild CAD (Minimal irregularities with thin apical segment left anterior descending) Procedure(s) Performed Procedure(s) Performed: Coronary Angiography, Left Heart Cath and LV Angiography Block Chopper Hand Fidel Osullivan MD Funeral Location Manager(s) [facility] Estimated Blood Loss Estimated Blood Loss: <15cc Medication(s) Medication(s): Fentanyl (12.5 mcg IV x2), Heparin (3000 units IV), Lidocaine 1% (Local infiltration access site), Nicardipine (250 mcg intra-arterial after arterial sheath insertion) and Versed (1 mg IV x 2) Summary of Findings Impressions: Right dominant coronary anatomy with minimal luminal irregularities only. No obstructive disease. Normal to hyperdynamic left ventricular function, EF 65-70% with apical obliteration in systole Normal left end-diastolic pressure Coronary angiography: Left main: Normal length and caliber free of disease and calcification Left anterior descending: Type II vessel. Gives rise to a small diagonal opposite a large septal branch in its proximal third and then in its midportion a large second diagonal branch which parallels the left anterior descending. The apical portion of the left anterior descending is thin in caliber but reaches the apex. There is minimal luminal irregularities in the vascular structures. Left circumflex: Large but nondominant. Gives rise to a large atrial branch small first marginal and a multibranching obtuse marginal. Within the left circumflex there is mild ectasia in its proximal portion and no obstructions Right coronary artery: Dominant distribution. It gives rise to 2 right ventricular branches in its midportion, an early takeoff bifurcating posterior descending artery, then along the AV groove to posterior ventricular branches. There is no disease in the right coronary artery LV angiography: Normal hyperdynamic LV function with apical obliteration of the LV cavity in systole EF 65 to 70% Hemodynamics Rest Ao:: 145/83/109 Final Ao: 143/76/105 LV: 139/0, LVEDP 8 Recommendations Recommendations: Medical Therapy and/or Counseling Specimens Specimens: None Radiation Exposure (mGy) 768 Contrast (mls) 97 Fluids (cc crystalloids) Fluids (cc crystalloids): 87 Anesthesia Start time: 1411, stop time: 1438 Procedural Complication(s) None Disposition Stick Roller Holding/Recovery I attest to the content of the Intraoperative Record and any orders documented therein. Any exceptions are noted below. ACC Data: Stick Roller Cardiac Status Clinical evaluation leading to the procedure Patient is a 50-year-old female with multiple cardiovascular risk factors presented with rest chest discomfort, possible dynamic EKG changes during initial evaluation CAD Presenation: Unstable angina Anginal Classification: CCS IV Heart Failure: No Cardiogenic Shock within 24 Hours: No Cardiac Arrest within 24 Hours: No Imaging Studies Past 6 Months: Yes Stress Studies Past 6 Months: No Standard Exercise Test: No Stress Echocardiogram: No Stress Testing w/SPECT MPI: No Cardiac CTA: No Coronary Anatomy Dominant: Right Left Main (% Stenosis): Normal LAD (% Stenosis): Distal (Mild luminal irregularities with thin apical) D1 (% Stenosis): Normal D2 (% Stenosis): Normal (Large vessel paralleling the left anterior descending) D3 (% Stenosis): Proximal Circumflex (% Stenosis): Proximal (Minimal ectasia) OM1 (% Stenosis): Normal OM2 (% Stenosis): Normal RCA (% Stenosis): Normal R PDA (% Stenosis): Normal (Bifurcating) R PL1 (% Stenosis): Normal R PL2 (% Stenosis): Normal Left Ventricular Angiography EF (%): 65-70 Diagnostic Physicians Name: Fidel Osullivan MD Status: Urgent Closure Device Percutaneous Entry Location: Radial Closure Device: Angio-Seal Recommendations: Medical Therapy and/or Counseling
--- NOTE | 2020-07-27 15:57 | Discharge Summary ---
Date of Service July 27, 2020 Admission HPI Per Admitting Provider this a 50 yo female with past medical hx of thyroid carcinoma, GERD , hx of papillary ca of thyroid s/p thyroidectomy , possible PMR presents to ER with complain of epigastric substernal chest pain experiencing since last Sunday . Pt report usually the pain starts from epigastric area then progressing to upper chest , neck , causing jaw pain had pain radiation to bilateral shoulders and arms with numbness of arm and hand . since last two days she has been experiencing pain is radiating to back . pt is note related to any activity or movement she could be sitting on chair or in bed , and experience symptoms no shortness of breath , no orthopnea , no dizzy spell or palpitation /no other associated symptoms of nausea or diaphoresis during the episodes . does not have any relieving factor /symptoms usually resolves after several minutes past 2 days her chest pain /chest heaviness got progressively worse , called her family physician , pt is asked to come to ER for evaluation pt was found to be mildly hypertensive in ER EKG shows T wave flattening on lateral leads pt denies of any active chest pain currently no headache or blurred vision , no fever or chills or cough , ER physician contacted consulting sales executive -due to symptoms of unstable angina and EKG change -started on IV heparin wt based protocol Principal Diagnosis Chest pain -non cardiac Normal coronaries on cardiac cath Discharge Exam Constitutional WD/WN, vitals as above Eyes PERRL, conjunctivae normal, anicteric sclerae ENMT external ear and nose normal, oropharynx normal Neck trachea midline, no thyromegaly Respiratory normal respiratory effort, lungs clear to auscultation Cardiovascular RRR, no murmur, no edema Gastrointestinal (Abdomen) normal bowel sounds, soft, nontender, no hepatosplenomegaly Musculoskeletal no cyanosis or clubbing, extremities motor strength 5/5 Skin no rashes, warm and dry Neurologic PERRL, EOMI, accommodation nl, no face palsy, no dysarthria Psychiatric A+Ox3, euthymic affect Discharge Data Allergies Allergy/AdvReac Type Severity Reaction Status Date / Time Gadolinium-Containing Allergy Intermediate hives Verified 07/26/20 18:46 Contrast Medi fenofibrate Allergy Mild edema Verified 07/26/20 18:47 lisinopril AdvReac Headache Unverified 07/26/20 18:56 Consultations 07/26/20 19:35 ED Decision to Admit Stat 07/26/20 20:35 Consult Cardiology Routine 07/27/20 10:00 Consult Cardiac Catheterization Routine Procedures Performed Operation Date: 07/27/20 15:00 Actual Procedures p Cath, Left with Cors and Vent - Fidel Osullivan MD s Cineradiography w/Routine Exam - Fidel Osullivan MD Ordered Studies 07/27/20 11:14 CL Cath Imgs for PACS use only Routine Hospital Course (1) Chest pain: presented with angina symptoms -on and off for past 1 week T wave flattening noted on lateral leads no chest pain at present : risk factors for CAD : family hx of CAD ( Grand mother , Aunt had CAD ) Uncle hx of stroke , pt is a heavy smoker 1 1/2 pl cig for > 25 yrs ( smoking cessation counselling provided ) appreciate input from Cardiology s/p cardiac cath today : right dominant coronary artery ,no evidence of occlusion or stenosis normal EF stable to be discharged home today , no further cardiac work up needed 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 : was seen by Rheumatology at [place] on 07/08/20 hx of rt temporal pain /headache , blurred vision had temporal artery biopsy treated with PO prednisone with no improvement of symptoms ESR ordered borderline elevated cont to follow up with Rheum as out pt plan to taper off prednisone as no symptomatic improvement with steroid per Rhum Leukocytosis : possible steroid induced was on prednisone 60 mg for possible Giant cell arteritis / Full code Disposition : stable to be discharged Total Time Total Time Spent Total Time Spent (In Minutes): 35 mins Total Time Includes: Discharge Planning and Medication Reconciliation Discharge Plan Discharge Items Patient Disposition: Home - Self-Care Reason For Visit: Muscle aches, chest pain, r arm pain Discharge Diagnosis: Chest pain -non cardiac Normal coronaries on cardiac cath Activity: Resume your previous activity Non-emergency contact: Primary Care Provider Call non-emergency contact if: you have any medication questions Follow-up/Referrals: Kimberlee Starkey DO [Primary Care Provider] - (hospital follow up in a week , office will call with appointment ) Diet: Gluten Free Addtl Attending Provider Instructions: It is very important to quit smoking -ongoing smoking is increasing your risk for having heart attack , stoke multifolded . Please discuss with you Rheumatology for rapid taper of Prednisone Do not drive for next 48-72 hrs, increase risk for bleeding wrist , procedure site Addtl Photographer Aerial Provider Instructions: ACTIVITY RECOMMENDATIONS: Excess manipulation of the wrist should be avoided for the next 24-48 hours. * No lifting over 2 pounds (approximately a 1/2 gallon of milk) with the utilized arm for 24 hours. * No strenuous activity such as bowling or tennis for 3 days. * Keep the site of the procedure covered with a bandage for 24 hours. *You may shower the day after the procedure. Do not take a tub bath or submerge the puncture site in water for the next 3 days. *Do not operate any motorized equipment for 3 days. SPECIAL CARE INSTRUCTIONS: The site may be slightly bruised and sore following your procedure. Should any of the following occur, contact the Dr. who performed your procedure. 1. Redness/inflammation, swelling, chills, or fever, or colored drainage at procedure site within 3-7 days after your procedure. 2. Coldness, discoloration, ongoing numbness, severe pain, or swelling. Expect mild tingling of hand and tenderness at the puncture site for up to three days. If this persists beyond three days, or other symptoms develop, notify the Dr. who performed your procedure. BLEEDING: If the procedure site on your wrist begins to bleed, do not panic 1. Place 1 or 2 fingers firmly just slightly above the insertion site to stop the bleeding. You may be able to feel your pulse as you hold pressure. 2. Lift your finger after 5 minutes to see if the bleeding has stopped. 3. Once the bleeding has stopped, gently wipe the wrist area clean with a bandage. * If the bleeding from your wrist does not stop after 10 minutes, or if there is a large amount of bleeding or spurting, call 911 (do not drive yourself to the hospital). SKIN IRRITATION: * You may experience some redness and/or swelling in the area where radiation was administered. If any skin irritation occurs, please contact your family physician. FOLLOW UP VISIT: Keep any scheduled doctor appointments. Pending Studies at Discharge: No Stand-Alone Forms: My [employer], Smoking Cessation Medications and DC Order Prescriptions: Continued levothyroxine 112 mcg tablet 112 mcg PO DAILY RF: 0 omeprazole 20 mg Tablet,Delayed Release (Dr/Ec) 20 mg PO HS RF: 0 liothyronine 5 mcg tablet 7.5 mcg PO BID RF: 0 prednisone 20 mg tablet 40 mg PO DAILY RF: 0 Discharge Orders: Discharge Order (Routine); Ordered 07/27/20 Ordered By: Jackie Duran Admission Data Admit Date/Time: 07/26/20 19:32 Attending Provider: Jackie Duran Admit Provider: Jackie Duran Primary Care Provider: Kimberlee Starkey Other Providers: Jackie Duran ; Samir Stoner ; Jules Malik ; Fidel Osullivan ; Joseph Stapleton ; Jose Antonio Cope ; Marcelino Dumont ; Ny Zhao ; Marcella Thomas ; Kai Chiu Other Interventions: Discharge Summary Assessment (RN) Last Done: 07/27/20 17:21
== END 2020-07-27 17:58 | disposition home or self-care (01) ==
LOC: ED 16:26 → 2S 16:26